=== PATIENT | female | born 1960 | race Caucasian/White ===

== ENCOUNTER → 2017-01-28 | Outpatient (CLI) | payer OTHER ==
[~2017-01-28] MED LIST: CELEXA20 M1 PO; DICLOFENAC 50MG50 MG PO; ESTRACE 1MG TABL1 MG PO; LEVOTHYROXIN0.112 M1 PO; PRILOSEC20 M1 PO; TOPAMAX200 MG PO
[2017-01-28 10:21] LABS: BUN 16 mg/dL (7-18)
[2017-01-28 10:22] LABS: GFR (ESTIMATED) 57 ML/MIN (59-)
== END ==
LOC: LAB 07:06
PROVIDERS: Nurse Practitioner Family
DX: E03.9 Hypothyroidism, unspecified (principal); Z00.00 Encounter for general adult medical examination without abnormal findings